=== PATIENT | female | born 1945 | race African-American/Black ===

== ENCOUNTER 2017-07-08 09:33 | Emergency (ER) | payer MEDICARE, OTHER ==
[~2017-07-08] VITALS: Ht 160 cm; Wt 81.8 kg
[~2017-07-08 09:33] MED LIST: BACL10TA PO; CITA20TA9 PO; FAMO20TA8 PO; FERR-72 PO; FOLI1TAB15 PO; GABA-326 PO; LISI40TA4 PO; MELO-108 PO; TRAM50TA4 PO
[2017-07-08 10:36] VITALS: BP 157/70
== END 2017-07-08 11:35 | disposition home or self-care (01) ==
LOC: EMS 09:34
DX: L50.9 Urticaria, unspecified (principal); S70.361A Insect bite (nonvenomous), right thigh, initial encounter; I10 Essential (primary) hypertension; E78.00 Pure hypercholesterolemia, unspecified; K21.9 Gastro-esophageal reflux disease without esophagitis; Z87.891 Personal history of nicotine dependence; Z88.0 Allergy status to penicillin; Z88.2 Allergy status to sulfonamides; Z88.5 Allergy status to narcotic agent; Z88.6 Allergy status to analgesic agent; W57.XXXA Bitten or stung by nonvenomous insect and other nonvenomous arthropods, initial encounter; Y93.89 Activity, other specified; Y92.89 Other specified places as the place of occurrence of the external cause; Y99.8 Other external cause status
CPT/HCPCS: 99281

== ENCOUNTER 2018-11-28 11:31 | Emergency (ER) | payer MEDICARE, OTHER ==
[~2018-11-28] VITALS: Ht 160 cm; Wt 84.1 kg
[~2018-11-28 11:31] MED LIST changes: +CITA-107 PO; -CITA20TA9 PO; -GABA-326 PO; +GABA800T9 PO
[2018-11-28 11:42] VITALS: BP 156/75
[2018-11-28 11:57] LABS: GLUCOSE,POINT OF CARE 143 MG/DL (70-110)
[2018-11-28] MEDS ORDERED: DOXYCYCLINE HYCLATE 100 MG CAPSULE PO ONE (13:30)
== END 2018-11-28 14:24 | disposition home or self-care (01) ==
LOC: EMS 11:35
DX: N61.0 Mastitis without abscess (principal); K21.9 Gastro-esophageal reflux disease without esophagitis; E78.00 Pure hypercholesterolemia, unspecified; I10 Essential (primary) hypertension; G89.29 Other chronic pain; Z87.891 Personal history of nicotine dependence; Z90.710 Acquired absence of both cervix and uterus; Z88.6 Allergy status to analgesic agent; Z88.1 Allergy status to other antibiotic agents; Z88.5 Allergy status to narcotic agent; Z88.0 Allergy status to penicillin; Z79.899 Other long term (current) drug therapy

== ENCOUNTER 2021-05-30 13:16 | Inpatient (IN) | payer MEDICARE, OTHER ==
[2021-05-30] VITALS (17 sets, daily range): BP systolic 119–176; BP diastolic 60–87
[~2021-05-30] VITALS: Ht 160 cm; Wt 77.3 kg
[~2021-05-30 13:16] MED LIST changes: -LISI40TA4 PO; +LISI40TA9 PO
[2021-05-30 14:46] LABS: LYMPHOCYTES # (AUTO) 1.2 K/uL (1.0-4.8)
[2021-05-30 14:50] LABS: BASOPHILS % (AUTO) 1.9 % (0.0-2.0); EOSINOPHILS % (AUTO) 3.3 % (1.0-6.0); LYMPHOCYTES % (AUTO) 19.1 % (22.0-44.0); MEAN CORPUSCULAR HEMOGLOBIN 21.9 pg (26.0-34.0); MEAN CORPUSCULAR HGB CONC 29.5 G/dL (31.0-37.0); MEAN CORPUSCULAR VOLUME 74 fL (80-100); MONOCYTES # (AUTO) 0.7 K/uL (0.1-1.0); MONOCYTES % (AUTO) 10.1 % (2.0-9.0); NEUTROPHILS # (AUTO) 4.3 K/uL (1.8-7.7); NEUTROPHILS % (AUTO) 65.6 % (40.0-70.0); PLATELET COUNT (AUTO) 452 K/uL (150-450); RED BLOOD CELL COUNT(AUTO) 1.98 MIL/uL (4.00-5.20); RED CELL DISTRIBUTION WIDTH 22.4 % (11.5-14.5)
[2021-05-30 14:55] LABS: ANION GAP 13 mmol/L (8-16); CALCIUM, TOTAL 10.8 mg/dL (8.8-10.5); CARBON DIOXIDE 24 mmol/L (22-29); CHLORIDE 104 mmol/L (98-107); CREATININE 1.07 mg/dL (0.60-1.30); GLOMERULAR FILTR. RATE CALC > 60 mL/min (>60); GLUCOSE,RANDOM 94 mg/dL (70-110); POTASSIUM 4.5 mmol/L (3.5-5.1); SODIUM SERUM 141 mmol/L (136-145); UREA NITROGEN, BLOOD 15 mg/dL (7-18)
[2021-05-30 14:59] LABS: HEMOGLOBIN 4.4 g/dL (12.0-16.0)
[2021-05-30 15:00] LABS: ALANINE AMINOTRANSFERASE 19 U/L (12-78); ALBUMIN 3.7 g/dL (3.4-5.0); ALKALINE PHOSPHATASE 68 U/L (46-116); ASPARTATE AMINOTRANSFERASE 16 U/L (15-37); BILIRUBIN,TOTAL 0.4 mg/dL (0.1-1.0); HEMATOCRIT 14.8 % (36-46); LIPASE 61 U/L (73-393); PROTHROMBIN TIME 10.8 SEC (9.4-11.6); TOTAL PROTEIN, SERUM 7.5 g/dL (6.4-8.2)
[2021-05-30] MEDS ORDERED: ONDANSETRON HCL 4 MG/2 ML VIAL IVP PRN ×2 (15:15→21:00)
[2021-05-30] MEDS ORDERED: ACETAMINOPHEN 325 MG TABLET PO PRN ×2 (15:15→21:00)
[2021-05-30] MEDS ORDERED: 0.9% SODIUM CHLORIDE 10 ML SYRINGE IVP PRN (15:15)
[2021-05-30 15:20] LABS: PLATELET MORPHOLOGY COMMENT LARGE PLTS PRESENT
[2021-05-30 15:24] LABS: % IRON SATURATION 2.9 % (22-44); IRON, SERUM 14 mcg/dL (50-175); TOTAL IRON BINDING CAPACITY 478 mcg/dL (250-450)
[2021-05-30 15:33] LABS: COVID AG,FIA SOURCE NASOPHARYNGEAL
[2021-05-30] MEDS ORDERED: SODIUM CHLORIDE 0.9% 250 ML IV ONE ×2 (19:30→20:47)
[2021-05-30] MEDS ORDERED: INFLUENZA VIRUS VACCINE QVS 2021-22 (6MO+)/PF 60 MCG/0.5 ML SYRINGE IM. ONE (20:15)
[2021-05-30] MEDS ORDERED: SODIUM CHLORIDE 0.9% 0 ML ONE (20:43)
[2021-05-30] MEDS: SOD FERRIC GLUC COMPLX/SUCROSE 125 MG in SODIUM CHLORIDE 0.9% 100 ML IV SCH (20:50)
[2021-05-30] MEDS ORDERED: ALBUTEROL SULFATE 2.5 MG/0.5 ML NEB SOLUTION NEB PRN (21:00)
[2021-05-30] MEDS ORDERED: BISACODYL 10 MG RECTAL RECTAL SUPPOSITORY PR PRN (21:00)
[2021-05-30] MEDS ORDERED: IPRATROPIUM BROMIDE 0.5 MG/2.5 ML NEB SOLUTION NEB PRN (21:00)
[2021-05-30] MEDS ORDERED: MAGNESIUM HYDROXIDE SUSPENSION 30 ML UDCUP PO PRN (21:00)
[2021-05-30] MEDS ORDERED: ZOLPIDEM TARTRATE 5 MG TABLET PO PRN (21:00)
[2021-05-30] MEDS: GABAPENTIN 400 MG CAPSULE PO SCH (22:06)
[2021-05-30] MEDS: DOCUSATE SODIUM 100 MG CAPSULE PO SCH (22:06)
[2021-05-30] MEDS: BACLOFEN 10 MG TABLET PO SCH (22:06)
[2021-05-30] MEDS: PANTOPRAZOLE SODIUM 40 MG/VIAL IVP SCH (22:18)
[2021-05-31] VITALS (7 sets, daily range): BP systolic 146–168; BP diastolic 63–103
[2021-05-31 01:20] LABS: HEMATOCRIT 22.4 % (36-46); HEMOGLOBIN 7.2 g/dL (12.0-16.0)
[2021-05-31] MEDS: TraMADol HCL 50 MG TABLET PO PRN ×3 (01:57→21:43)
[2021-05-31] MEDS ORDERED: FERROUS SULFATE 325 MG EC TABLET PO SCH (08:00)
[2021-05-31] MEDS: BACLOFEN 10 MG TABLET PO SCH ×3 (08:22→20:26)
[2021-05-31] MEDS: FOLIC ACID 1 MG TABLET PO SCH (08:22)
[2021-05-31] MEDS: GABAPENTIN 400 MG CAPSULE PO SCH ×3 (08:22→20:26)
[2021-05-31] MEDS: CITALOPRAM HYDROBROMIDE 20 MG TABLET PO SCH (08:22)
[2021-05-31] MEDS: PANTOPRAZOLE SODIUM 40 MG/VIAL IVP SCH ×2 (08:23→20:25)
[2021-05-31] MEDS: DOCUSATE SODIUM 100 MG CAPSULE PO SCH (08:23)
[2021-05-31 09:44] LABS: BASOPHILS % (AUTO) 1.8 % (0.0-2.0); EOSINOPHILS % (AUTO) 5.5 % (1.0-6.0); HEMATOCRIT 24.1 % (36-46); HEMOGLOBIN 7.9 g/dL (12.0-16.0); LYMPHOCYTES # (AUTO) 1.2 K/uL (1.0-4.8); LYMPHOCYTES % (AUTO) 16.9 % (22.0-44.0); MEAN CORPUSCULAR HEMOGLOBIN 25.5 pg (26.0-34.0); MEAN CORPUSCULAR HGB CONC 32.6 G/dL (31.0-37.0); MEAN CORPUSCULAR VOLUME 78 fL (80-100); MONOCYTES # (AUTO) 0.9 K/uL (0.1-1.0); MONOCYTES % (AUTO) 12.9 % (2.0-9.0); NEUTROPHILS # (AUTO) 4.3 K/uL (1.8-7.7); NEUTROPHILS % (AUTO) 62.9 % (40.0-70.0); PLATELET COUNT (AUTO) 376 K/uL (150-450); RED BLOOD CELL COUNT(AUTO) 3.08 MIL/uL (4.00-5.20); RED CELL DISTRIBUTION WIDTH 20.1 % (11.5-14.5)
[2021-05-31 09:54] LABS: ANION GAP 10 mmol/L (8-16); CALCIUM, TOTAL 10.3 mg/dL (8.8-10.5); CARBON DIOXIDE 25 mmol/L (22-29); CHLORIDE 106 mmol/L (98-107); CREATININE 1.04 mg/dL (0.60-1.30); GLUCOSE,RANDOM 98 mg/dL (70-110); POTASSIUM 4.2 mmol/L (3.5-5.1); SODIUM SERUM 141 mmol/L (136-145); UREA NITROGEN, BLOOD 13 mg/dL (7-18)
[2021-05-31 09:56] LABS: GLOMERULAR FILTR. RATE CALC > 60 mL/min (>60)
[2021-05-31] MEDS: FERROUS SULFATE 325 MG EC TABLET PO SCH (18:51)
[2021-05-31] MEDS: SOD FERRIC GLUC COMPLX/SUCROSE 125 MG in SODIUM CHLORIDE 0.9% 100 ML IV SCH (20:24)
[2021-05-31] MEDS: SENNA/DOCUSATE SODIUM 8.6-50 MG TABLET PO SCH (20:27)
[2021-06-01 04:15] VITALS: BP 149/81
[2021-06-01] MEDS: PANTOPRAZOLE SODIUM 40 MG/VIAL IVP SCH (07:59)
[2021-06-01] MEDS: GABAPENTIN 400 MG CAPSULE PO SCH (08:00)
[2021-06-01] MEDS: SENNA/DOCUSATE SODIUM 8.6-50 MG TABLET PO SCH (08:00)
[2021-06-01] MEDS: FERROUS SULFATE 325 MG EC TABLET PO SCH (08:00)
[2021-06-01] MEDS: FOLIC ACID 1 MG TABLET PO SCH (08:00)
[2021-06-01] MEDS: BACLOFEN 10 MG TABLET PO SCH (08:01)
[2021-06-01] MEDS: CITALOPRAM HYDROBROMIDE 20 MG TABLET PO SCH (08:05)
[2021-06-01 09:44] VITALS: BP 158/70
[2021-06-01 12:39] LABS: PATHOLOGY REVIEW, DIFF YES
[2021-06-01 12:50] VITALS: BP 138/70
[2021-06-01 12:55] VITALS: BP 148/72
[2021-06-01 14:42] LABS: BASOPHILS % (AUTO) 1.5 % (0.0-2.0); EOSINOPHILS % (AUTO) 3.8 % (1.0-6.0); HEMATOCRIT 25.2 % (36-46); HEMOGLOBIN 7.9 g/dL (12.0-16.0); LYMPHOCYTES # (AUTO) 1.6 K/uL (1.0-4.8); LYMPHOCYTES % (AUTO) 18.8 % (22.0-44.0); MEAN CORPUSCULAR HEMOGLOBIN 25.2 pg (26.0-34.0); MEAN CORPUSCULAR HGB CONC 31.6 G/dL (31.0-37.0); MEAN CORPUSCULAR VOLUME 80 fL (80-100); MONOCYTES # (AUTO) 1.2 K/uL (0.1-1.0); MONOCYTES % (AUTO) 13.9 % (2.0-9.0); NEUTROPHILS # (AUTO) 5.3 K/uL (1.8-7.7); PLATELET COUNT (AUTO) 378 K/uL (150-450); RED BLOOD CELL COUNT(AUTO) 3.16 MIL/uL (4.00-5.20); RED CELL DISTRIBUTION WIDTH 20.5 % (11.5-14.5)
[2021-06-01] MEDS ORDERED: FERR-72 PO (15:38)
[2021-06-01 16:56] VITALS: BP 124/74
== END 2021-06-01 16:00 | disposition home or self-care (01) | DRG 812 ==
LOC: EMS 13:20 → 5S 16:22
PROVIDERS: ADMIT Hospitalist; ATTEND Hospitalist
PROC: 30233N1 Transfusion of Nonautologous Red Blood Cells into Peripheral Vein, Percutaneous Approach (ICD-10-PCS; principal; 2021-05-30)
DX: D50.9 Iron deficiency anemia, unspecified (principal); E78.00 Pure hypercholesterolemia, unspecified; E78.5 Hyperlipidemia, unspecified; F41.9 Anxiety disorder, unspecified; I10 Essential (primary) hypertension; G62.9 Polyneuropathy, unspecified; Z20.822 Contact with and (suspected) exposure to COVID-19; G89.29 Other chronic pain; M06.9 Rheumatoid arthritis, unspecified; Z82.49 Family history of ischemic heart disease and other diseases of the circulatory system; Z87.11 Personal history of peptic ulcer disease; Z87.891 Personal history of nicotine dependence; Z90.710 Acquired absence of both cervix and uterus; Z88.0 Allergy status to penicillin; Z88.2 Allergy status to sulfonamides; Z88.5 Allergy status to narcotic agent; Z88.8 Allergy status to other drugs, medicaments and biological substances
CPT/HCPCS: 71045; 80048; 80053; 82271; 83540; 83550; 83690; 84484; 85014; 85018; 85025; 85610; 85730; 86850; 86900; 86901; 86923; 90686; 93005; 99285; C9113; J2916; J7050; P9016; 36415-L1; 36415-TC; G0008

== ENCOUNTER 2021-07-15 21:29 | Inpatient (IN) | payer MEDICARE, OTHER ==
[~2021-07-15] VITALS: Ht 160 cm; Wt 88.6 kg
[~2021-07-15 21:29] MED LIST changes: -MELO-108 PO
[2021-07-15] MEDS ORDERED: TraMADol HCL 50 MG TABLET PO ONE (22:45)
[2021-07-15] MEDS ORDERED: MORPHINE SULFATE 2 MG/ML SYRINGE IM ONE (23:45)
[2021-07-15] MEDS ORDERED: ONDANSETRON HCL 4 MG/2 ML VIAL IM ONE (23:45)
[2021-07-16] MEDS ORDERED: BISACODYL 10 MG RECTAL RECTAL SUPPOSITORY PR PRN
[2021-07-16] MEDS ORDERED: MAGNESIUM HYDROXIDE SUSPENSION 30 ML UDCUP PO PRN
[2021-07-16] MEDS ORDERED: ONDANSETRON HCL 4 MG/2 ML VIAL IVP PRN
[2021-07-16 00:53] LABS: MEAN CORPUSCULAR HGB CONC 32.1 G/dL (31.0-37.0); MEAN CORPUSCULAR VOLUME 96 fL (80-100); PLATELET COUNT (AUTO) 234 K/uL (150-450); RED CELL DISTRIBUTION WIDTH 21.7 % (11.5-14.5)
[2021-07-16 01:08] LABS: CALCIUM, TOTAL 10.6 mg/dL (8.8-10.5); CREATININE 1.17 mg/dL (0.60-1.30); POTASSIUM 3.9 mmol/L (3.5-5.1)
[2021-07-16 01:15] LABS: BILIRUBIN,TOTAL 0.2 mg/dL (0.1-1.0); TOTAL PROTEIN, SERUM 7.8 g/dL (6.4-8.2)
[2021-07-16 01:16] LABS: PROTHROMBIN TIME 10.4 SEC (9.4-11.6)
[2021-07-16 01:24] LABS: COVID AG,FIA SOURCE NASAL SWAB
[2021-07-16 02:28] LABS: BAND NEUTROPHILS % (MANUAL) 0 % (0-5); EOSINOPHILS % (MANUAL) 1 % (1-6); LYMPHOCYTES % (MANUAL) 3 % (22-44); MONOCYTES % (MANUAL) 4 % (2-9); SEGMENTED NEUTROPHILS % 92 % (40-70)
[2021-07-16 02:29] LABS: PLATELET MORPHOLOGY COMMENT LARGE PLTS PRESENT
[2021-07-16 02:46] VITALS: BP 156/71
[2021-07-16 03:37] VITALS: BP 141/69
[2021-07-16] MEDS: HEPARIN SODIUM,PORCINE 5,000 UNITS/ML VIAL SQ SCH ×4 (03:59→23:27)
[2021-07-16] MEDS: ACETAMINOPHEN 325 MG TABLET PO PRN (04:00)
[2021-07-16 07:30] VITALS: BP 148/70
[2021-07-16 08:13] LABS: HEMATOCRIT 27.2 % (36-46); HEMOGLOBIN 8.7 g/dL (12.0-16.0); MEAN CORPUSCULAR HGB CONC 32.1 G/dL (31.0-37.0); MEAN CORPUSCULAR VOLUME 97 fL (80-100); RED BLOOD CELL COUNT(AUTO) 2.81 MIL/uL (4.00-5.20); RED CELL DISTRIBUTION WIDTH 21.5 % (11.5-14.5)
[2021-07-16 08:17] LABS: BASOPHILS % (AUTO) 0.5 % (0.0-2.0); EOSINOPHILS % (AUTO) 0.5 % (1.0-6.0); LYMPHOCYTES # (AUTO) 1.3 K/uL (1.0-4.8); LYMPHOCYTES % (AUTO) 12.8 % (22.0-44.0); MONOCYTES % (AUTO) 9.8 % (2.0-9.0); NEUTROPHILS # (AUTO) 7.5 K/uL (1.8-7.7); NEUTROPHILS % (AUTO) 76.4 % (40.0-70.0); PLATELET COUNT (AUTO) 191 K/uL (150-450)
[2021-07-16 08:21] LABS: ANION GAP 5 mmol/L (8-16); CALCIUM, TOTAL 10.3 mg/dL (8.8-10.5); CARBON DIOXIDE 28 mmol/L (22-29); CHLORIDE 105 mmol/L (98-107); CREATININE 0.99 mg/dL (0.60-1.30); GLUCOSE,RANDOM 109 mg/dL (70-110); SODIUM SERUM 138 mmol/L (136-145); UREA NITROGEN, BLOOD 26 mg/dL (7-18)
[2021-07-16 08:22] LABS: GLOMERULAR FILTR. RATE CALC > 60 mL/min (>60)
[2021-07-16] MEDS: GABAPENTIN 400 MG CAPSULE PO SCH ×3 (08:35→21:17)
[2021-07-16] MEDS: FERROUS SULFATE 325 MG EC TABLET PO SCH (08:35)
[2021-07-16] MEDS: DOCUSATE SODIUM 100 MG CAPSULE PO SCH ×2 (08:36→21:17)
[2021-07-16] MEDS: PANTOPRAZOLE SODIUM 40 MG DR TABLET PO SCH (08:36)
[2021-07-16] MEDS: LISINOPRIL 20 MG TABLET PO SCH (08:36)
[2021-07-16] MEDS: FOLIC ACID 1 MG TABLET PO SCH (08:36)
[2021-07-16] MEDS: MORPHINE SULFATE 2 MG/ML SYRINGE IVP PRN ×3 (08:37→21:26)
[2021-07-16 08:51] LABS: PLATELET MORPHOLOGY COMMENT LARGE PLTS PRESENT
[2021-07-16 10:48] VITALS: BP 142/68
[2021-07-16 14:42] VITALS: BP 105/89
[2021-07-16 20:50] VITALS: BP 125/57
[2021-07-16] MEDS: RINGERS SOLUTION,LACTATED 1,000 ML IV SCH (22:09)
[2021-07-17 02:57] VITALS: BP 130/58
[2021-07-17] MEDS: MORPHINE SULFATE 2 MG/ML SYRINGE IVP PRN (03:13)
[2021-07-17] MEDS: HEPARIN SODIUM,PORCINE 5,000 UNITS/ML VIAL SQ SCH ×3 (07:44→23:04)
[2021-07-17 07:55] VITALS: BP 137/63
[2021-07-17] MEDS: RINGERS SOLUTION,LACTATED 1,000 ML IV SCH (08:08)
[2021-07-17] MEDS: FERROUS SULFATE 325 MG EC TABLET PO SCH (08:28)
[2021-07-17] MEDS: FOLIC ACID 1 MG TABLET PO SCH (08:31)
[2021-07-17] MEDS: LISINOPRIL 20 MG TABLET PO SCH (08:32)
[2021-07-17] MEDS: PANTOPRAZOLE SODIUM 40 MG DR TABLET PO SCH (08:33)
[2021-07-17] MEDS: GABAPENTIN 400 MG CAPSULE PO SCH ×3 (08:42→20:03)
[2021-07-17] MEDS: DOCUSATE SODIUM 100 MG CAPSULE PO SCH ×2 (08:51→20:03)
[2021-07-17 09:04] LABS: BASOPHILS % (AUTO) 0.7 % (0.0-2.0); EOSINOPHILS % (AUTO) 0.5 % (1.0-6.0); HEMATOCRIT 26.4 % (36-46); HEMOGLOBIN 8.6 g/dL (12.0-16.0); LYMPHOCYTES # (AUTO) 0.6 K/uL (1.0-4.8); LYMPHOCYTES % (AUTO) 6.5 % (22.0-44.0); MEAN CORPUSCULAR HEMOGLOBIN 31.7 pg (26.0-34.0); MEAN CORPUSCULAR HGB CONC 32.7 G/dL (31.0-37.0); MEAN CORPUSCULAR VOLUME 97 fL (80-100); MONOCYTES # (AUTO) 0.8 K/uL (0.1-1.0); MONOCYTES % (AUTO) 8.8 % (2.0-9.0); NEUTROPHILS # (AUTO) 7.6 K/uL (1.8-7.7); NEUTROPHILS % (AUTO) 83.5 % (40.0-70.0); PLATELET COUNT (AUTO) 216 K/uL (150-450); RED BLOOD CELL COUNT(AUTO) 2.72 MIL/uL (4.00-5.20); RED CELL DISTRIBUTION WIDTH 19.7 % (11.5-14.5)
[2021-07-17 09:26] LABS: ANION GAP 5 mmol/L (8-16); CALCIUM, TOTAL 10.3 mg/dL (8.8-10.5); CARBON DIOXIDE 30 mmol/L (22-29); CHLORIDE 102 mmol/L (98-107); CREATININE 0.96 mg/dL (0.60-1.30); GLUCOSE,RANDOM 131 mg/dL (70-110); POTASSIUM 4.4 mmol/L (3.5-5.1); SODIUM SERUM 137 mmol/L (136-145); UREA NITROGEN, BLOOD 20 mg/dL (7-18)
[2021-07-17 09:27] LABS: GLOMERULAR FILTR. RATE CALC > 60 mL/min (>60)
[2021-07-17] MEDS ORDERED: VANCOMYCIN HCL 1 GM in DEXTROSE 5%-WATER 250 ML IV ONE (12:30)
[2021-07-17] MEDS ORDERED: VANCOMYCIN 1GM/WATER(PEG/NADA) 200 ML IV ONE (12:30)
[2021-07-17 15:37] VITALS: BP 148/72
[2021-07-17 19:40] VITALS: BP 150/68
[2021-07-17] MEDS: ACETAMINOPHEN 325 MG TABLET PO PRN (20:06)
[2021-07-18] MEDS: ACETAMINOPHEN 325 MG TABLET PO PRN ×3 (01:25→20:47)
[2021-07-18] MEDS: ZOLPIDEM TARTRATE 5 MG TABLET PO PRN ×2 (01:28→23:46)
[2021-07-18 05:30] VITALS: BP 146/71
[2021-07-18 07:24] LABS: BASOPHILS % (AUTO) 0.4 % (0.0-2.0); EOSINOPHILS % (AUTO) 0.7 % (1.0-6.0); HEMATOCRIT 25.9 % (36-46); HEMOGLOBIN 8.5 g/dL (12.0-16.0); LYMPHOCYTES # (AUTO) 0.6 K/uL (1.0-4.8); LYMPHOCYTES % (AUTO) 7.8 % (22.0-44.0); MEAN CORPUSCULAR HEMOGLOBIN 31.4 pg (26.0-34.0); MEAN CORPUSCULAR VOLUME 95 fL (80-100); MONOCYTES # (AUTO) 0.8 K/uL (0.1-1.0); MONOCYTES % (AUTO) 10.6 % (2.0-9.0); NEUTROPHILS # (AUTO) 6.1 K/uL (1.8-7.7); NEUTROPHILS % (AUTO) 80.5 % (40.0-70.0); PLATELET COUNT (AUTO) 221 K/uL (150-450); RED BLOOD CELL COUNT(AUTO) 2.73 MIL/uL (4.00-5.20)
[2021-07-18 07:41] LABS: ANION GAP 3 mmol/L (8-16); CALCIUM, TOTAL 10.8 mg/dL (8.8-10.5); CARBON DIOXIDE 30 mmol/L (22-29); CHLORIDE 102 mmol/L (98-107); CREATININE 0.85 mg/dL (0.60-1.30); GLUCOSE,RANDOM 133 mg/dL (70-110); POTASSIUM 4.1 mmol/L (3.5-5.1); SODIUM SERUM 135 mmol/L (136-145); UREA NITROGEN, BLOOD 14 mg/dL (7-18)
[2021-07-18 07:43] LABS: GLOMERULAR FILTR. RATE CALC > 60 mL/min (>60)
[2021-07-18] MEDS: LISINOPRIL 20 MG TABLET PO SCH (08:20)
[2021-07-18] MEDS: GABAPENTIN 400 MG CAPSULE PO SCH ×3 (08:21→20:47)
[2021-07-18] MEDS: FERROUS SULFATE 325 MG EC TABLET PO SCH (08:21)
[2021-07-18] MEDS: PANTOPRAZOLE SODIUM 40 MG DR TABLET PO SCH (08:21)
[2021-07-18] MEDS: DOCUSATE SODIUM 100 MG CAPSULE PO SCH ×2 (08:21→20:47)
[2021-07-18] MEDS: FOLIC ACID 1 MG TABLET PO SCH (08:21)
[2021-07-18] MEDS: HEPARIN SODIUM,PORCINE 5,000 UNITS/ML VIAL SQ SCH ×3 (08:22→23:40)
[2021-07-18 08:26] VITALS: BP 137/84
[2021-07-18] MEDS ORDERED: TRAM50TA4 PO (12:46)
[2021-07-18] MEDS: TraMADol HCL 50 MG TABLET PO PRN ×2 (13:57→23:40)
[2021-07-18 16:05] VITALS: BP 135/85
[2021-07-18 19:50] VITALS: BP 156/69
[2021-07-19 05:22] VITALS: BP 150/76
[2021-07-19 07:59] VITALS: BP 152/69
[2021-07-19] MEDS: TraMADol HCL 50 MG TABLET PO PRN ×2 (08:10→12:33)
[2021-07-19] MEDS: GABAPENTIN 400 MG CAPSULE PO SCH (08:10)
[2021-07-19] MEDS: HEPARIN SODIUM,PORCINE 5,000 UNITS/ML VIAL SQ SCH (08:14)
[2021-07-19] MEDS: FOLIC ACID 1 MG TABLET PO SCH (08:14)
[2021-07-19] MEDS: LISINOPRIL 20 MG TABLET PO SCH (08:14)
[2021-07-19] MEDS: FERROUS SULFATE 325 MG EC TABLET PO SCH (08:15)
[2021-07-19] MEDS: PANTOPRAZOLE SODIUM 40 MG DR TABLET PO SCH (08:15)
[2021-07-19] MEDS: DOCUSATE SODIUM 100 MG CAPSULE PO SCH (08:15)
[2021-07-19] MEDS ORDERED: PERCT PO (11:17)
== END 2021-07-19 15:00 | disposition home health service (06) | DRG 563 ==
LOC: EMS 21:36 → 5S 07-16 00:13 → 6S 07-16 14:15
PROVIDERS: ADMIT Internal Medicine; ATTEND Internal Medicine
DX: S42.291A Other displaced fracture of upper end of right humerus, initial encounter for closed fracture (principal); S42.211A Unspecified displaced fracture of surgical neck of right humerus, initial encounter for closed fracture; W18.30XA Fall on same level, unspecified, initial encounter; I10 Essential (primary) hypertension; E78.5 Hyperlipidemia, unspecified; E66.9 Obesity, unspecified; Z68.34 Body mass index [BMI] 34.0-34.9, adult; Z20.822 Contact with and (suspected) exposure to COVID-19; G89.29 Other chronic pain; K21.9 Gastro-esophageal reflux disease without esophagitis; M54.50 Low back pain, unspecified; M25.429 Effusion, unspecified elbow; W17.89XA Other fall from one level to another, initial encounter; Z87.11 Personal history of peptic ulcer disease; Z88.0 Allergy status to penicillin; Z88.2 Allergy status to sulfonamides; Z88.8 Allergy status to other drugs, medicaments and biological substances; Z90.710 Acquired absence of both cervix and uterus; Y93.89 Activity, other specified; Y92.098 Other place in other non-institutional residence as the place of occurrence of the external cause; Y99.8 Other external cause status
CPT/HCPCS: 73200; 80048; 80053; 85025; 85610; 85730; 87081; 93306; 97116; 97163; 97166; 97530; 97535; 99285; J1644; J2270; J2405; J3370; J7060; J7120; Q9967